=== PATIENT | female | born 1995 | race Caucasian/White ===

== ENCOUNTER 2016-10-23 11:05 | Emergency (ER) | payer BC, OTHER ==
[2016-10-23 11:10] VITALS: O2SAT 98
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
[2016-10-23] MEDS ORDERED: IBUPROFEN 600 MG TAB PO ONE (12:00)
[2016-10-23] MEDS ORDERED: BACITRACIN OINTMENT 1 PACKET TP ONE (12:08)
[2016-10-23 12:24] VITALS: BP 136/85; PULSE 65; RESP 18; TEMP 98.6
== END 2016-10-23 12:23 | disposition home or self-care (01) ==
DX: S00.31XA Abrasion of nose, initial encounter (principal); S60.222A Contusion of left hand, initial encounter; S00.511A Abrasion of lip, initial encounter; S50.311A Abrasion of right elbow, initial encounter; S80.211A Abrasion, right knee, initial encounter; S80.212A Abrasion, left knee, initial encounter; V17.4XXA Pedal cycle driver injured in collision with fixed or stationary object in traffic accident, initial encounter; Y93.55 Activity, bike riding